=== PATIENT | male | born 1960 | race Caucasian/White ===

== ENCOUNTER → 2020-02-29 | Outpatient (CLI) | payer OTHER | LOC: M.CT 13:30 → M.MRI 13:30 → M.CT 13:35 | DX: M47.816 Spondylosis without myelopathy or radiculopathy, lumbar region (principal); M43.26 Fusion of spine, lumbar region; M25.78 Osteophyte, vertebrae; M48.05 Spinal stenosis, thoracolumbar region; M48.07 Spinal stenosis, lumbosacral region ==